=== PATIENT | male | born 1985 | race Caucasian/White ===

== ENCOUNTER 2016-11-25 15:58 | Emergency (ER) | payer OTHER ==
[~2016-11-25] VITALS: Ht 182.9 cm; Wt 86.2 kg
[2016-11-25 15:59] VITALS: BP 158/86
[2016-11-25] MEDS ORDERED: TETRACAINE 0.5% OPHTH SOLN 4ML OD ONE (17:30)
[2016-11-25] MEDS ORDERED: FLUORESCEIN OPHTH 1 MG STRIP OD ONE (17:30)
[2016-11-25] MEDS ORDERED: ERYT5OPO OD (17:58)
[2016-11-25] MEDS ORDERED: ERYTHROMYCIN OPHTH OINT OD ONE (18:00)
[2016-11-25] MEDS ORDERED: NORCO 5/325MG TABLET (BULK) PO ONE (18:00)
== END 2016-11-25 18:24 | disposition home or self-care (01) ==
LOC: M ED 17:17
DX: S05.01XA Injury of conjunctiva and corneal abrasion without foreign body, right eye, initial encounter (principal); S05.11XA Contusion of eyeball and orbital tissues, right eye, initial encounter; W22.8XXA Striking against or struck by other objects, initial encounter; Y92.89 Other specified places as the place of occurrence of the external cause; Y93.89 Activity, other specified; Y99.8 Other external cause status